=== PATIENT | female | born 1945 ===

== ENCOUNTER 2020-07-10 05:51 | Day surgery (SDC) | payer OTHER ==
[~2020-07-10 05:51] MED LIST: ALLOPURINOL300 MG PO; CHILDREN'S ASPI81 MG PO; COZAAR50 MG PO; CRESTOR10 MG PO; DOXAZOSIN PO; VERELAN240 MG PO
[2020-07-10] MEDS ORDERED: ULTRACET PO (13:40)
[2020-07-10] MEDS ORDERED: MACROBID 100 M100 MG PO (13:41)
== END 2020-07-10 17:10 | disposition home or self-care (01) ==
LOC: CIR.AMB 05:51
PROVIDERS: ATTEND Obstetrics & Gynecology Gynecology
DX: N81.11 Cystocele, midline (principal); N81.83 Incompetence or weakening of rectovaginal tissue; Z20.828 Contact with and (suspected) exposure to other viral communicable diseases